=== PATIENT | male | born 1970 | race Caucasian/White ===

== ENCOUNTER → 2019-04-24 10:50 | Outpatient (BNVA) | payer MEDICARE, MEDICAID, SELFPAY | PROVIDERS: Visit Provider Orthopaedic Surgery | DX: Z48.89 Encounter for other specified surgical aftercare (principal); Z96.651 Presence of right artificial knee joint; M25.462 Effusion, left knee; M25.461 Effusion, right knee | CPT/HCPCS: 73560; 73565 ==